=== PATIENT | female | born 1990 | race Caucasian/White ===

== ENCOUNTER 2019-02-09 15:12 | Outpatient (RCR) | payer MEDICAID, SELFPAY ==
[2019-02-09 15:20] VITALS: BP 120/71; PULSE 70
--- NOTE | 2019-02-09 16:50 | WPDOBADMIT ---
Obstetrics - Admit Note Admission Note: 28 y/o at 32 weeks gestation with a diagnosis of multiple sclerosis, here with a one day history of right wrist, finger pain, radiating up toward elbow. No contractions. No vaginal bleeding. Good movement. No other neurologic symptoms.. AVSS NST reactive TOCO: rare contractions ABD soft, nontender, gravid, EXT nontender NEURO: DTR 2/4, symmetric in upper and lower extremities. Strength 5/5 and symmetric. A: Carpal tunnel paresthesias in right arm. P: Recommended a right wrist splint. F/u as scheduled.
== END 2019-04-14 08:29 | disposition home or self-care (01) ==
LOC: ANHOBOP 15:12
PROVIDERS: Visit Provider Obstetrics & Gynecology
DX: O99.89 Other specified diseases and conditions complicating pregnancy, childbirth and the puerperium (principal); M79.603 Pain in arm, unspecified; Z3A.32 32 weeks gestation of pregnancy
CPT/HCPCS: 59025

== ENCOUNTER 2019-06-08 01:17 | Day surgery (SDC) | payer OTHER, SELFPAY ==
[2019-05-26 13:44] VITALS: BMI 21.6
[2019-06-08] VITALS (11 sets, daily range): BP systolic 100–155; BP diastolic 63–102; PULSE 60–95; RESP 12–20; TEMP 36.3–37.1; O2SAT 99–100
--- NOTE | 2019-06-08 09:49 | PM.IMHP ---
H&P: HPI History of Present Illness Chief complaint: Desires Sterilization Narrative: 28 y/o who desires permanent sterilization. Review of Systems Review of Systems: All systems reviewed & are unremarkable except as noted in HPI and below PMFSH Past Medical History Medical History Anxiety Chronic, continuous use of opioids Depression Fibromyalgia History of MRSA infection History of multiple sclerosis Multiple sclerosis Smoking 1/2 pack a day or less Surgical History Surgical History H/O LEEP Family History Family History Mother Family history of thyroid disease Family history of arthritis Father Hypertension Family history of alcoholism Grandparent Family history of coronary artery disease Family history of arthritis Family history of heart disease in male family member before age 55 Diabetes mellitus Sibling Depression Social History Social History Smoking status: Current every day smoker Tobacco type: cigarettes Second hand tobacco smoke exposure: Yes Alcohol intake: current Substance use: former Other substance usage details: LAST TIME USED 2 YEARS AGO Gender identity (if verbalized by the patient): Female Spiritual care concerns: No Comments Past OB: IUFD at 26 weeks, of girl weighing 7#12oz, SAB leading to D&C, of girl weighing 6#2oz. Past NUT FORMER: History of LEEP. Pap in Dec 2018 neg. Meds Home Medications and Allergies Home Medications Medication Instructions Recorded Confirmed Type hydrocodone-acetaminophen 1 tablet PO Q8H PRN 03/05/19 05/26/19 History acetaminophen [Mapap 650 mg PO Q6H PRN #30 tablet 03/22/19 05/26/19 Rx (acetaminophen)] ibuprofen 600 mg PO Q6H PRN #30 tablet 03/22/19 05/26/19 Rx fluoxetine [Prozac] 20 mg PO DAILY 05/26/19 05/26/19 History lorazepam 0.5 mg PO DAILY PRN 05/26/19 05/26/19 History norethindrone (contraceptive) 0.35 mg PO DAILY 05/26/19 05/26/19 History Allergies Allergy/AdvReac Type Severity Reaction Status Date / Time No Known Allergies Allergy Verified 05/26/19 13:45 Exam Const: Orientation/consciousness: patient oriented x3 Other: Well-developed, well-nourished female in no acute distress. Neck: Thyroid: thyroid normal Lymphatic: no lymphadenopathy noted (in neck, axilla or inguinal nodes) Resp: Effort & Inspection: normal respiratory effort Auscultation: clear to auscultation bilaterally Cardio: Rate: regular rate Rhythm: regular rhythm Heart sounds: S1 normal heart sound present and S2 normal heart sound present GI: Other: ABD: Soft, nontender, nondistended. No guarding or rebound tenderness. No hepatosplenomegaly. : General: Yes no CVA tenderness Other: External genitalia: normal female hair distribution, without lesion. Urethral meatus: no lesion, non prolapsed. Bladder: no mass, nontender Vagina: well-estrogenized, without lesion or discharge. No cystocele or rectocele. Cervix: no lesion or discharge. Uterus: small, anteverted, freely mobile, nontender Adnexa: no mass or tenderness. Anus/perineum: no lesions, nontender Back/Spine/Pelvis: Back: no CVA tenderness Skin: General skin exam: normal color and no rashes or lesions noted Neuro: General: patient oriented x3 Extrem: Other: Extremities: nontender with no edema Psych: Mental Status: mental status grossly normal Affect: normal affect Assessment and Plan Assessment and plan (1) Unwanted fertility: Code(s): Z30.09 - Encounter for other general counseling and advice on contraception Status: Acute Assessment and Plan: She understands there are temporary methods of contraception available to her. She understands that there are nonsurgical options as well as surgical options. She understands that tubal ligation will render her permanently s
--- NOTE | 2019-06-08 11:21 | WPDANESEPPF ---
Anes - Initial Pre Proc Eval Procedure: Operation Date: 06/08/19 12:00 Proposed Procedures p Laparoscopic Bilateral Tubal Ligation With Fallopian Rings - Jd Robertson MD Date/Time: 06/08/19 11:21 Surgeon: Jd Robretson MD Pre Op Diagnosis: Desires Sterilization Patient Data Age: 28 Gender: F Height: 1.65 m Weight: 59.45 kg Allergies Allergy/AdvReac Type Severity Reaction Status Date / Time No Known Allergies Allergy Verified 06/08/19 11:16 Home Medications Medication Instructions Recorded Confirmed Type hydrocodone-acetaminophen 1 tablet PO Q8H PRN 03/05/19 06/08/19 History ibuprofen 600 mg PO Q6H PRN #30 tablet 03/22/19 06/08/19 Rx fluoxetine [Prozac] 20 mg PO DAILY 05/26/19 06/08/19 History lorazepam 0.5 mg PO DAILY PRN 05/26/19 06/08/19 History norethindrone (contraceptive) 0.35 mg PO DAILY 05/26/19 06/08/19 History Patient hx anesthesia problems: none Family hx anesthesia problems: none PMFSH Past Medical History Medical History Anxiety Chronic, continuous use of opioids 2 5/325 hydrocones/daily Depression Fibromyalgia History of MRSA infection History of multiple sclerosis Multiple sclerosis Smoking 1/2 pack a day or less Surgical History Surgical History H/O LEEP Family History Family History Mother Family history of thyroid disease Family history of arthritis Father Hypertension Family history of alcoholism Grandparent Family history of coronary artery disease Family history of arthritis Family history of heart disease in male family member before age 55 Diabetes mellitus Sibling Depression Social History Social History Smoking status: Current every day smoker Tobacco type: cigarettes Second hand tobacco smoke exposure: Yes Alcohol intake: current Substance use: former Other substance usage details: LAST TIME USED 2 YEARS AGO Gender identity (if verbalized by the patient): Female Spiritual care concerns: No Anes - Eval Final PreProcedure Day of Procedure 06/08/19 11:21 Patient weight: normal Heart: regular rate and rhythm Lungs: clear to auscultation and normal air movement Airway: Mallampati scale class 1 Neurological: alert and oriented Last oral intake: >/= 8 hours ASA classification: III Emergent: no Anesthetic plan: proceed Anesthesia type and monitoring: general ETT and standard monitoring Informed Consent: The patient's anesthetic plan and its attendant risks and benefits were discussed with the patient/family/POA. Questions were solicited and answers provided to the satisfaction of the patient/family/POA.
[2019-06-08] MEDS: LACTATED RINGERS 1,000 ML 30 ML IV CONT ×2 (11:28→13:49)
[2019-06-08] MEDS: KETOROLAC 30 MG/ML VIAL (*BKC) 15 MG IV PUSH (13:30)
--- NOTE | 2019-06-08 13:41 | PM.PROC ---
Procedure Note - Detailed Date of procedure: 06/08/19 Pre-op diagnosis: Desires Sterilization Post-op diagnosis: same Procedure performed: Laparoscopic bilateral tubal ligation with Falope rings Description of procedure: The patient was taken to the operating room where general endotracheal anesthesia was administered. She was prepared and draped in the usual sterile fashion in dorsal lithotomy position. The bladder was drained with a red rubber catheter. A sterile speculum was placed into the vagina. The anterior lip of the cervix was grasped with a single-tooth tenaculum. The acorn uterine manipulator was placed. The speculum was withdrawn. Gloves were changed and attention was turned the abdomen. An infraumbilical skin incision was made with a scalpel. The abdomen was tented and a 5mm bladeless trocar was advanced under direct laparoscopic visualization. Pneumoperitoneum was administered using carbon dioxide gas. A survey of the pelvis and abdomen revealed the findings noted above. A second skin incision was made in the midline above the symphysis pubis and an 8mm bladeless trocar was advanced under direct laparoscopic visualization. The fallopian tube on the right side was followed out to the fimbriated end for identification. It was then grasped in the midportion with the Falope ring applicator. The Falope ring was applied, and a good loop of tube was noted to be distal to the ring. Hemostasis was excellent. The device was reloaded and the contralateral tube was similarly identified and ligated. An excellent application was noted here as well. A total of 1mL of 1% lidocaine was infiltrated into the serosa of the proximal tubes for postoperative anesthesia. The ports were withdrawn. The gas was allowed to escape. The skin incisions were reapproximated using interrupted subcuticular sutures of 4 0 Vicryl. Dermaflex was applied externally. The vaginal instrumentation was withdrawn and hemostasis was excellent here as well. Sponge, lap, needle and instrument counts were correct. The patient was awakened and taken to recovery room in stable condition. I was present and scrubbed through the entire procedure. Implants: Falope rings x 2 Anesthesia: MAC and local (1% lidocaine) Surgeon: Jd Robertson MD Estimated blood loss (mL): 5 Drains: No Packing: No Pathology: none sent Complications: None Condition: stable Disposition: PACU Findings: RUQ anatomy unremarkable. The vermiform appendix was unable to be visualized. The uterus, tubes and ovaries were unremarkable. The anterior and posterior cul-de-sac were unremarkable. Bilateral round ligaments and uterosacral ligaments were unremarkable.
--- NOTE | 2019-06-08 15:16 | SUR.PHASEI ---
1500 UPDATED MOTHER RE: PT STATUS.
[2019-06-08] MEDS: HYDROMORPHONE HCL 1 MG/ML INJ 0.5 MG IV PUSH ×2 (15:56→16:35)
== END 2019-06-08 17:04 | disposition home or self-care (01) ==
PROVIDERS: Visit Provider Obstetrics & Gynecology
PROC: (CPT 58671; principal; 2019-06-08 12:00)
DX: Z30.2 Encounter for sterilization (principal); G35 Multiple sclerosis; M79.7 Fibromyalgia; F41.8 Other specified anxiety disorders; F17.210 Nicotine dependence, cigarettes, uncomplicated; Z79.891 Long term (current) use of opiate analgesic
CPT/HCPCS: 58671; A4264; A9270; J0131; J0330; J1100; J1170; J1885; J2250; J2405; J2704; J3010; J7120

== ENCOUNTER 2019-09-16 17:55 | Outpatient (CLI) | payer OTHER, SELFPAY ==
--- NOTE | ~2019-09-16 | MR_ITS ---
EXAMINATION: MR brain/brain stem wo/w con, MR cervical spine wo/w con, MR thoracic spine wo/w con DATE: 09/16/2019 20:03 INDICATION: Multiple sclerosis present with numbness, tingling and pain/pressure in the back of head. TECHNIQUE: 1. Magnetic resonance imaging (MRI) of the brain and brainstem was performed without and with 10 mL M ultihance intravenous contrast. Sequences included sagittal and axial T1-weighted FLAIR, axial T1-vivian ghted FSE, axial diffusion-weighted FS EPI, sagittal T2-weighted FLAIR, axial T2*-weighted GRE, axial T2-weighted FLAIR Propeller, and axial T2-weighted Propeller. Postcontrast sequences included axial, coronal, and sagittal T1-weighted FSE. Apparent diffusion coefficient (ADC) maps were created. 2. MRI of the cervical spine was performed without and with 10 mL Multihance intravenous contrast. Se quences included sagittal T2-weighted FSE, sagittal T2-weighted FS FSE, sagittal T1-weighted FSE, axi al T2-weighted FSE, and axial T1-weighted SE. Postcontrast sequences included sagittal T1-weighted FS FSE, and axial T1-weighted FS SE. 3. MRI of the lumbar spine was performed without and with 10 mL MultiHance intravenous contrast. The identical contrast bolus was utilized for all 3 studies. Sagittal localizer T1-weighted FSE of the ce rvicothoracic spine was obtained. Sequences included sagittal T2-weighted FSE, sagittal T2-weighted F S FSE, sagittal T1-weighted FSE and axial T1-weighted SE. Postcontrast sequences included axial T2-we ighted FSE, sagittal T1-weighted FS FSE, and axial T1-weighted FS SE. COMPARISON: None. FINDINGS: Brain: There are no areas of restricted diffusion to suggest acute infarction. No intracranial hemorrhage or abnormal intracranial mass lesion. There are approximately 33 total lesions of increased T2-weighted signal intensity in the brain, the majority tiny. Of these lesions, approximately 10 are periventric ular, 20 are juxtacortical, and 3 are infratentorial in the peri. None of the lesions enhance. There are no intraparenchymal signal abnormalities seen on the other pulse sequences. The ventricles are sy mmetric and normal in size. There are no abnormal extra-axial fluid collections. Flow voids are seen in the cerebral arteries on the T2-weighted sequences consistent with their expected patency. Visuali zed orbits and soft tissues are unremarkable. There are no areas of abnormal enhancement on the post contrast images. Cervical and thoracic spine: Alignment is normal. Cervical and thoracic vertebral body heights are normal. Normal marrow signal. C ervical disc heights are normal. Annular fissure at C4-C5 with large right paracentral disc extrusion which results in mild central canal stenosis and indents the ventral surface of the cord. In the tho racic spine there is mild disc height loss at T3-T4 through T6-T7 with disc protrusions at T4-T5, T5- T6 and more prominently at T6-T7 results in mild central canal stenosis and flattening of the ventral surface of the cord. No appreciable uncovertebral or facet osteoarthritis in the cervical or thoraci c spine. No neural foraminal stenosis in the cervical or thoracic spine. There is a small T2 hyperint ense nonenhancing lesion centrally in the cord at the level of C5 which is evident on both of the sag ittal images but is not clearly visualized on the axial sequences which are somewhat limited by small amount of motion artifact. No other T2 hyperintense or enhancing lesions identified in the cervical or thoracic spine. IMPRESSION: 1. Multiple small to tiny T2 hyperintense lesions in the brain and larger T2 hyperintense lesion in t he cervical cord consistent with given history of multiple sclerosis. No enhancing lesions identified . 2. Mild cervical and thoracic spondylosis most notable for an annular fissure and large disc extrusio n with mild central canal stenosis at C4-C5 and smaller disc protrusions wi
[2019-09-16 18:36] LABS: Estimated Glomerular Filt Rate > 60
== END 2019-09-16 17:56 | disposition home or self-care (01) ==
PROVIDERS: Visit Provider Psychiatry & Neurology Neurology
DX: G35 Multiple sclerosis (principal); M47.812 Spondylosis without myelopathy or radiculopathy, cervical region; M47.814 Spondylosis without myelopathy or radiculopathy, thoracic region
CPT/HCPCS: 36415; 70553; 72156; 72157; A9577

== ENCOUNTER 2020-02-02 16:20 | Outpatient (CLI) | payer OTHER, SELFPAY ==
[2020-02-02 17:14] LABS: Basophils Absolute Auto 0.1 K/mm3 (0.0-0.1); Basophils Percent Auto 0.6 % (0.2-1.2); Eosinophils Absolute Auto 0.2 K/mm3 (0-0.3); Eosinophils Percent Auto 1.7 % (0-4.4); Hematocrit 40.5 % (37.0-47.0); Hemoglobin 13.8 g/dL (12.0-15.0); Immature Granulocyte Absolute 0.02 K/mm3 (0.00-0.031); Immature Granulocyte Percent A 0.2 % (0-0.5); Lymphocytes Absolute Auto 2.62 K/mm3 (0.9-3.2); Lymphocytes Percent Auto 28.4 % (18.3-44.2); Mean Corpuscular HGB Conc 34.1 g/dl (32-36); Mean Corpuscular Hemoglobin 32.6 pg (26-34); Mean Corpuscular Volume 95.7 fl (80-100); Mean Platelet Volume 8.7 fl (7.4-10.4); Monocytes Absolute Auto 0.5 K/mm3 (0.1-0.6); Monocytes Percent Auto 4.9 % (2.6-8.5); Neutrophils Absolute Auto 5.9 K/mm3 (1.3-6.7); Neutrophils Percent Auto 64.2 % (45.5-73.1); Platelet Count Result 325 k/mm3 (150-375); Red Blood Count 4.23 M/mm3 (4.2-5.4); White Blood Count 9.2 K/mm3 (4.5-10.0)
[2020-02-02 17:45] LABS: Alanine Aminotransferase 13 U/L (4-35); Albumin Level 4.4 g/dL (3.5-5.1); Alkaline Phosphatase 55 U/L (38-126); Anion Gap 8 mmol/L (8-16); Aspartate Amino Transferase 19 U/L (14-36); Bilirubin,Total 0.7 mg/dL (0.2-1.3); Blood Urea Nitrogen 11 mg/dL (7-17); Carbon Dioxide 30 mmol/L (22-30); Chloride 103 mmol/L (98-107); Estimated Glomerular Filt Rate > 60; Glucose 94 mg/dL (65-105); Potassium 3.8 mmol/L (3.4-5.0); Sodium 141 mmol/L (137-145)
[2020-02-02 18:26] LABS: Free T4 Free Thyroxine 1.14 ng/mL (0.78-2.19)
[2020-02-02 20:41] LABS: Folic Acid 14.3 ng/mL (2.76->20)
[2020-02-08 07:44] LABS: Albumin 4.3 g/dL (3.8-4.8); Alpha 1 Globulin 0.3 g/dL (0.2-0.3); Alpha 2 Globulin 0.6 g/dL (0.5-0.9); Beta 1 Globulin 0.4 g/dL (0.4-0.6); Gamma Globulin 0.7 g/dL (0.8-1.7); Interpretation Consistent with; Protein, Total 6.6 g/dL (6.1-8.1)
== END 2020-02-02 16:21 | disposition home or self-care (01) ==
LOC: ANHLAB 16:23
PROVIDERS: Visit Provider Psychiatry & Neurology Neurology
DX: G35 Multiple sclerosis (principal)
CPT/HCPCS: 36415; 80053; 82607; 82746; 84155; 84165; 84439; 84443; 85025

== ENCOUNTER 2021-04-23 02:02 | Outpatient (CLI) | payer OTHER, SELFPAY ==
[2021-04-18 14:59] VITALS: BMI 24.7
--- NOTE | 2021-04-18 15:12 | PC.NURSE ---
Report to the Outpatient Waiting Room, entrance under the green pavilion located off [facility], at time 0700 on date 04/23/21. OR Time: 0900. - You will be asked a series of questions to screen for COVID 19 for your protection. - A mask is required within the hospital. - No visitors are allowed at this time. Preoperative COVID Testing Requirements: No COVID Test needed if: (proof is required; if not received patient will have Rapid Test prior to entry) - Patient has received COVID Vaccine at least 14 days prior to procedure date or - Patient has positive COVID test result within last 90 days of surgery date. COVID Test needed if above criteria is not met - No food/DRINK FOR 6 HOURS PRIOR TO PROCEDURE Take the following medications with a SIP of water the morning of surgery: NONE Medications to discontinue per physician: N/A Date to take last dose: N/A Please no make-up, nail bengali, hairspray, perfume, deodorant, or body powder the day of surgery. No jewelry (including any body piercings) or valuables the day of surgery, leave them at home. Please take a shower or bath the night before, or the morning of, surgery with an antibacterial soap. Wear comfortable, loose fitting clothing. - Jewelry must be removed prior to entering the operating room. Rings and piercings that are not removed may be cut off. - The hospital will not accept responsibility for valuables. - Please leave all valuables, including medications, at home the day of surgery. If you are going home after surgery, a licensed hog driver must drive you home. - NO public transportation without another adult. - We recommend that an adult stay with you for 24 hours following discharge. - We also recommend that you do not drive, make important decision, drink alcoholic beverages, or take any drugs that were not prescribed by your health care provider for at least 24 hours after your discharge time. Follow any additional instructions given to you from your surgeon. Telephone instructions given to JOSÉ TAYLOR and asked if any additional questions and then verbalized understanding. Patient advised to call surgeon office or pre surgery nurse liaison [phone] if any additional questions.
--- NOTE | ~2021-04-23 | XR_ITS ---
EXAMINATION: XR lumbar puncture diagnostic DATE: 04/23/2021 09:31 INDICATION: Personal history of other diseases of the nervous system. TECHNIQUE: The procedure including the risks, benefits, and alternatives was discussed with the patie nt. Risks discussed included spinal headache, cerebrospinal fluid leak, bleeding, and infection. The patient understood the risks and agreed to proceed. A timeout was performed to verify the patient' s name, date of , and procedure to be performed. The skin overlying the L4-L5 level was prepped and draped in usual sterile fashion. Subcutaneous 1% lidocaine was used for local anesthesia. A 20 gauge spinal needle was advanced under fluoroscopic guidance. The needle was removed and the entry s ite was cleaned and dressed. There were no immediate complications. Fluoroscopy exposure time was 0. 1 minutes. The total number of images was 1. FINDINGS: Real-time fluoroscopy demonstrates the needle at the L4-L5 level. The opening pressure was 16 cm water (Normal range is variably defined as 6-20 cm water and up to 25 cm water in obese patient s. Pressure >25 cm water is one of the modified Dandy criteria for idiopathic intracranial hypertensi on). 14 mL of clear, colorless fluid was collected in 4 tubes. IMPRESSION: 1. Successful fluoro-guided lumbar puncture. Reviewed, dictated and finalized at location A. INE BASTER
[2021-04-23 07:33] VITALS: BP 113/67; PULSE 88; RESP 16; TEMP 37.2; O2SAT 100
[2021-04-23 07:38] LABS: Mean Platelet Volume 8.7 fl (7.4-10.4); Platelet Count Result 325 k/mm3 (150-375)
[2021-04-23 08:05] LABS: Prothrombin Time 13.1 Seconds (11.1-14.7)
[2021-04-23 09:30] VITALS: BP 99/67; PULSE 53; RESP 16; TEMP 36.9; O2SAT 97
[2021-04-23 09:47] LABS: Glucose CSF 61 mg/dL (40-70); Total Protein CSF 23 mg/dL (12-60)
[2021-04-23 10:00] VITALS: BP 100/60; PULSE 61; RESP 16; O2SAT 97
[2021-04-23 10:30] VITALS: BP 97/63; PULSE 70; RESP 18; O2SAT 98
[2021-04-23 10:30] LABS: Appearance CSF Clear (Clear); CSF source CSF; Color CSF Colorless (Colorless); Lymphocytes CSF 95 % (40-80); Monocytes CSF 5 % (15-45); Nucleated Cell CSF 16 /uL (0-5); Red Blood Cell CSF 0 (0-2)
[2021-04-23 11:00] VITALS: BP 96/60; PULSE 60; RESP 16; O2SAT 100
[2021-04-23 11:20] VITALS: BP 93/60; PULSE 61; RESP 16; O2SAT 99
[2021-04-25 16:14] LABS: VDRL Quantitative CSF Nonreactive (Nonreactive)
[2021-04-27 03:36] LABS: Albumin, CSF 11.8 mg/dL (8.0-42.0); Albumin, Serum 4.3 g/dL (3.5-5.2); IgG Index, CSF 1.64 (<0.66); IgG, CSF 3.1 mg/dL (0.8-7.7); Immunoglobulin G, Serum 687 mg/dL (600-1640); Myelin Basic Protein, CSF <2.0 mcg/L (2.0-4.0)
== END 2021-04-23 11:35 | disposition home or self-care (01) ==
PROVIDERS: Psychiatry & Neurology Neurology; Visit Provider Radiology Diagnostic Radiology
DX: Z86.69 Personal history of other diseases of the nervous system and sense organs (principal)
CPT/HCPCS: 36415; 62328; 82040; 82042; 82784; 82945; 83873; 83916; 84157; 85049; 85610; 86592; 87015; 87102; 87116; 87206; 89051

== ENCOUNTER 2021-11-17 11:14 | Outpatient (CLI) | payer OTHER, SELFPAY ==
--- NOTE | ~2021-11-17 | XR_ITS ---
EXAM: XR thoracic spine 3V DATE: 11/17/2021 11:41 HISTORY: G35 - Multiple sclerosis, CHRONIC PAIN. NKI . COMPARISON: None available. FINDINGS: Vertebral body alignment intact. Vertebral body heights preserved. No disc space narrowing . No traumatic malalignment or fracture. Visualized lung parenchyma is clear. IMPRESSION: Normal thoracic spine radiograph findings. Reviewed, dictated and finalized at location K.
--- NOTE | ~2021-11-17 | XR_ITS ---
EXAM: XR cervical spine 4-5V DATE: 11/17/2021 11:41 HISTORY: G35 - Multiple sclerosis, CHRONIC PAIN. NKI . COMPARISON: None available. FINDINGS: Limited evaluation of the lower right cervical neural foramen. Craniocervical association a nd atlantoaxial joint are normal. No prevertebral soft tissue swelling. Vertebral bodies are aligned. Vertebral body heights and disc spaces are maintained. Normal facets and posterior elements. IMPRESSION: Normal cervical spine radiograph findings within the limitations described above. Reviewed, dictated and finalized at location K. IMPRESSION: Normal cervical spine radiograph findings within the limitations de scribed above.
--- NOTE | ~2021-11-17 | XR_ITS ---
EXAM: XR lumbar spine min 4V DATE: 11/17/2021 11:41 HISTORY: G35 - Multiple sclerosis, CHRONIC PAIN. NKI . COMPARISON: None available. FINDINGS: 5 nonrib-bearing lumbar-type vertebral bodies. Pedicles intact. Normal vertebral body alig nment. Vertebral body heights preserved. Mild disc space narrowing at L4-5. Moderate disc space narro wing at L5-S1. Normal facets and posterior elements. No fracture or dislocation. IMPRESSION: Lower lumbar degenerative disc disease. Reviewed, dictated and finalized at location K.
== END 2021-11-17 11:15 | disposition home or self-care (01) ==
PROVIDERS: PCP Psychiatry & Neurology Neurology; Visit Provider Psychiatry & Neurology Neurology
DX: G35 Multiple sclerosis (principal); M51.36 Other intervertebral disc degeneration, lumbar region
CPT/HCPCS: 72050; 72072; 72110

== ENCOUNTER 2022-09-19 14:24 | Outpatient (CLI) | payer OTHER, SELFPAY ==
--- NOTE | ~2022-09-19 | MR_ITS ---
MRI of the cervical spine Clinical History: Multiple sclerosis Technique: Axial T2-weighted and gradient images, and sagittal T1-weighted, T2-weighted, and STIR marcelle ges were acquired. Following intravenous administration of 13 cc MultiHance gadolinium, T1-weighted f at-sat imaging was performed in the axial and sagittal planes. Findings: There is no fracture or subluxation of the cervical spine. Vertebral bodies maintain normal height and alignment. No bone marrow signal abnormality seen. At C2-C3, there is no disc bulge or herniation. No spinal canal stenosis, cord compression, or neural foraminal narrowing. At C3-C4, there is no disc bulge or herniation. No spinal canal stenosis, cord compression, or neural foraminal narrowing. At C4-C5, there is broad-based disc protrusion or disc ossify complex, minimally effacing the thecal sac, but without felisa canal stenosis or cord compression. Bilateral neural foramina are preserved. At C5-C6, there is no disc bulge or herniation. No spinal canal stenosis, cord compression, or neural foraminal narrowing. At C6-C7, there is no disc bulge or herniation. No spinal canal stenosis, cord compression, or neural foraminal narrowing. There is a subtle central T2 hyperintense intramedullary lesion in the spinal cord at the C4 level (s eries 15 image 15, series 19 image 8), consistent with a demyelinating plaques of multiple sclerosis. No abnormal postcontrast enhancement seen. Paravertebral soft tissues are unremarkable. Impression: T2 hyperintense intramedullary cord lesion centrally at the C4 level, consistent with small focal dem yelinating plaques of multiple sclerosis. No associated enhancement. Reviewed, dictated and finalized at [facility]. Impression: T2 hyperintense intramedullary cord lesion centrally at the C4 level, consisten t with small focal demyelinating plaques of multiple sclerosis. No associated e nhancement.
--- NOTE | ~2022-09-19 | MR_ITS ---
MRI of the brain Clinical History: Multiple sclerosis Technique: Axial and sagittal T1-weighted images were acquired. These were followed by axial T2-weigh mel, diffusion weighted, gradient, and FLAIR images. Sagittal FLAIR images were also performed. Follo wing intravenous administration of 13 cc MultiHance gadolinium, T1-weighted fat-sat imaging was perfo rmed in the axial, coronal, and sagittal planes. COMPARISON: 09/16/2019 Findings: There is no acute infarct, internal hemorrhage, or mass lesion. Multiple focal FLAIR hyperi ntense white matter lesions are present, essentially stable from prior exam, consistent with demyelin ating plaques of multiple sclerosis. Ventricles and subarachnoid spaces are unremarkable. Orbits are unremarkable. Paranasal sinuses and m astoid air cells are clear. Major intracranial flow voids are intact. Sagittal midline structures are intact. No abnormal postcontrast enhancement identified. IMPRESSION: Stable white matter lesions, consistent with the demyelinating plaques of multiple sclerosis. No acti ve/enhancing plaque identified. Reviewed, dictated and finalized at location M. IMPRESSION: Stable white matter lesions, consistent with the demyelinating plaques of multi ple sclerosis. No active/enhancing plaque identified.
--- NOTE | ~2022-09-19 | MR_ITS ---
MRI of the thoracic spine Clinical History: Sclerosis Technique: Axial T2-weighted and gradient images, and sagittal T1-weighted, T2-weighted, and STIR marcelle ges were acquired.. Following intravenous administration of 13 cc MultiHance gadolinium, T1-weighted fat-sat imaging was performed in the axial and sagittal planes. Findings: There is no fracture or subluxation of the thoracic spine. Vertebral bodies maintain normal height and line. No bone marrow signal abnormality evident. There is mild disc protrusion at T6-T7, with minimal flattening of the ventral cord. No other disc bu lge or herniation seen. No other areas of spinal canal stenosis or cord compression identified. No abnormal signal identified in the spinal cord itself. No abnormal postcontrast enhancement identified. Paravertebral soft tissues are unremarkable. Impression: No intramedullary abnormality of the thoracic spinal cord itself. Mild disc protrusion centrally at T6-T7, with minimal flattening of the ventral cord at this level. Reviewed, dictated and finalized at [facility]. Impression: No intramedullary abnormality of the thoracic spinal cord itself. Mild disc protrusion centrally at T6-T7, with minimal flattening of the ventral cord at this level.
== END 2022-09-19 14:25 | disposition home or self-care (01) ==
PROVIDERS: PCP Internal Medicine; Visit Provider Student in an Organized Health Care Education/Training Program
DX: G35 Multiple sclerosis (principal); M51.24 Other intervertebral disc displacement, thoracic region
CPT/HCPCS: 70553; 72156; 72157; A9577

== ENCOUNTER 2023-10-07 16:48 | Outpatient (CLI) | payer OTHER, SELFPAY ==
[2023-10-07 18:16] LABS: Basophils Absolute Auto 0.1 K/mm3 (0.0-0.1); Basophils Percent Auto 0.6 % (0.2-1.2); Eosinophils Absolute Auto 0.3 K/mm3 (0-0.3); Eosinophils Percent Auto 2.7 % (0-4.4); Hematocrit 41.1 % (37.0-47.0); Hemoglobin 13.5 g/dL (12.0-15.0); Immature Granulocyte Absolute 0.03 K/mm3 (0.00-0.031); Immature Granulocyte Percent A 0.3 % (0-0.5); Lymphocytes Absolute Auto 2.25 K/mm3 (0.9-3.2); Lymphocytes Percent Auto 21.1 % (18.3-44.2); Mean Corpuscular HGB Conc 32.8 g/dl (32-36); Mean Corpuscular Hemoglobin 31.8 pg (26-34); Mean Corpuscular Volume 96.7 fl (80-100); Mean Platelet Volume 9.8 fl (7.4-10.4); Monocytes Absolute Auto 0.7 K/mm3 (0.1-0.6); Monocytes Percent Auto 6.9 % (2.6-8.5); Neutrophils Absolute Auto 7.3 K/mm3 (1.3-6.7); Neutrophils Percent Auto 68.4 % (45.5-73.1); Platelet Count Result 363 k/mm3 (150-375); Red Blood Count 4.25 M/mm3 (4.2-5.4); Red Cell Distribution Width 11.9 % (11.5-14.5); White Blood Count 10.7 K/mm3 (4.5-10.0)
[2023-10-07 18:33] LABS: Alanine Aminotransferase 17 U/L (6-35); Albumin Level 4.9 g/dL (3.5-5.1); Alkaline Phosphatase 52 U/L (38-126); Anion Gap 11 mmol/L (4-12); Aspartate Amino Transferase 23 U/L (14-36); Bilirubin,Total 1.1 mg/dL (0.2-1.3); Blood Urea Nitrogen 8 mg/dL (7-17); Carbon Dioxide 29 mmol/L (22-30); Chloride 98 mmol/L (98-107); Estimated Glomerular Filt Rate > 60; Glucose 74 mg/dL (65-110); Potassium 4.1 mmol/L (3.4-5.0); Sodium 138 mmol/L (137-145)
[2023-10-07 18:51] LABS: Vitamin D 25 Hydroxy 37.8 ng/mL
[2023-10-07 19:03] LABS: Hepatitis B Surface Antigen Negative (Negative)
[2023-10-07 19:09] LABS: HAV RESULT Negative (Negative); Hepatitis B Core IgM Result Negative (Negative)
[2023-10-07 19:20] LABS: Hepatitis C Virus Antibody Negative (Negative)
[2023-10-08 12:18] LABS: Immunoglobulin A 148 mg/dL (47-310); Immunoglobulin G 793 mg/dL (600-1640); Immunoglobulin M 32 mg/dL (50-300)
== END 2023-10-07 16:49 | disposition home or self-care (01) ==
LOC: ANHLAB 16:49
PROVIDERS: PCP Internal Medicine; Visit Provider Student in an Organized Health Care Education/Training Program
DX: G35 Multiple sclerosis (principal)
CPT/HCPCS: 36415; 80053; 80074; 82306; 82607; 82746; 82784; 84443; 85025; 86787